=== PATIENT | female | born 1995 | race Caucasian/White ===

== ENCOUNTER 2023-03-30 11:58 | Emergency (ER) | payer OTHER ==
[2023-03-30 12:38] VITALS: O2SAT 100
--- NOTE | 2023-03-30 12:49 | ED Physician Documentation ---
History of Present Illness - Stated complaint Stated Complaint: - Chief complaint Chief Complaint: Abd Pain - History obtained from History obtained from: Patient, Family - History of Present Illness Timing: How many days ago (6) - Additonal information Additional information: 27-year-old female, 1 para 0, approximately 8 weeks visiting from [place] has had vaginal bleeding and spotting for the past 6 days. Her blood type is B+. mild pelvic cramping. nothing makes it better or worse. no vaginal discharge. Review of Systems Constitutional: denies: Fever, Chills Respiratory: denies: Cough GI: denies: Nausea, Vomiting, Diarrhea Skin: denies: Rash Musculoskeletal: denies: Neck pain, Back pain Neurologic: denies: Headache PD PAST MEDICAL HISTORY - Past Medical History Past Medical History: No Cardiovascular: None Respiratory: None Neuro: None Endocrine/Autoimmune: None GI: None MORNING CAREGIVER: None : None HEENT: None Psych: None Musculoskeletal: None Derm: None - Past Surgical History Past Surgical History: No - Present Medications Home Medications: Ambulatory Orders Medication Instructions Recorded Confirmed No Known Home Medications 03/30/23 03/30/23 - Allergies Allergies/Adverse Reactions: Allergies Allergy/AdvReac Type Severity Reaction Status Date / Time No Known Drug Allergies Allergy Verified 03/30/23 12:24 - Social History Does the pt smoke?: No Smoking Status: Never smoker Does the pt drink ETOH?: No Does the pt have substance abuse?: No - Immunizations Immunizations are current?: Yes - POLST Patient has POLST: No PD ED PE NORMAL - Vitals Vital signs reviewed: Yes - General General: Alert and oriented X 3, No acute distress - HEENT HEENT: Moist mucous membranes - Neck Neck: Supple, no meningeal sign - Cardiac Cardiac: RRR, Strong equal pulses - Respiratory Respiratory: No respiratory distress, Clear bilaterally - Abdomen Abdomen: Soft, Non tender, Non distended - Derm Derm: Warm and dry, No rash - Extremities Extremities: No edema, No calf tenderness / cord - Neuro Neuro: Alert and oriented X 3 - Psych Psych: Normal mood, Normal affect Results - Vitals Vitals: Vital Signs - 24 hr 03/30/23 03/30/23 03/30/23 12:18 13:56 15:00 Temperature 37.1 C 37.0 C Heart Rate 93 84 82 Respiratory 18 18 16 Rate Blood Pressure 141/67 H 119/74 120/72 O2 Saturation 100 100 100 Oxygen O2 Source Room air - Labs Labs: Laboratory Tests 03/30/23 03/30/23 03/30/23 12:30 12:58 12:58 WBC 6.4 RBC 4.54 Hgb 13.7 Hct 41.2 MCV 90.7 MCH 30.2 MCHC 33.3 RDW 12.6 Plt Count 312 MPV 9.1 Neut # (Auto) 4.2 Lymph # (Auto) 1.4 L [place] # (Auto) 0.6 Eos # (Auto) 0.1 Baso # (Auto) 0.0 Absolute Nucleated RBC 0.00 Nucleated RBC % 0.0 Sodium 138 Potassium 4.1 Chloride 104 Carbon Dioxide 29 Anion Gap 5.0 L BUN 12 Creatinine 0.6 Estimated GFR (MDRD) 121 Glucose 75 Calcium 9.6 Total Bilirubin 0.3 AST 27 ALT 58 Alkaline Phosphatase 58 Total Protein 7.5 Albumin 4.6 Globulin 2.9 Albumin/Globulin Ratio 1.6 Beta HCG, Quant 4537.6 Urine Color YELLOW Urine Clarity HAZY Urine pH 6.5 Ur Specific [place] 1.015 Urine Protein NEGATIVE Urine Glucose (UA) NEGATIVE Urine Ketones NEGATIVE Urine Occult Blood MODERATE H Urine Nitrite NEGATIVE Urine Bilirubin NEGATIVE Urine Urobilinogen 0.2 (NORMAL) Ur Leukocyte Esterase NEGATIVE Urine RBC 0-5 Urine WBC 0-3 Ur Squamous Epith Cells MOD Squamous H Amorphous Sediment Marked Urine Bacteria Few Ur Microscopic Review INDICATED Urine Culture Comments NOT INDICATED - Rads (name of study) OB ultrasound Relevant Findings:: Final report received, See rad report PD Medical Decision Making - ED course Complexity details: reviewed results, re-evaluated patient, considered differential, d/w patient, d/w family ED course: No significant lab abnormalities. Beta-hCG is approximately 4500. Ultrasound reveals a gestational sac and yolk sac, approximately 5 weeks 5 days. No other abnormalities. Patient currently asymptomatic. She is visiting from out of town, so will return here in approximately 3 days for repeat hCG. Ectopic precautions given at bedside, no evidence of ectopic currently. Patient counseled regarding signs and symptoms for which I believe and urgent re- evaluation would be necessary. Patient with good understanding of and agreement to plan and is comfortable going home at this time This document was made in part using voice recognition software. While efforts are made to proofread this document, sound alike and grammatical errors may occur. Departure - Departure Disposition: 01 Home, Self Care Clinical Impression: Vaginal bleeding affecting early Condition: Good Instructions: ED Miscarriage Poss Comments: Please return here in 2 to 3 days for repeat hCG level as you are visiting from out of town. Your hCG level today was about 4500. There is a gestational sac, evidence of a yolk sac and an estimated gestational age of 5 weeks 5 days on ultrasound today. Please return for worsening bleeding, pain or other new or worrisome symptoms. Forms: PCP List Discharge Date/Time: 03/30/23 15:34
[2023-03-30 13:06] LABS: BASOPHILS % (AUTO) 0.6 %; EOSINOPHILS # (AUTO) 0.1 10^3/uL (0.0-0.7); EOSINOPHILS % (AUTO) 1.1 %; HCT - HEMATOCRIT 41.2 % (37.0-47.0); HGB - HEMOGLOBIN 13.7 g/dL (12.0-16.0); LYMPHOCYTES # (AUTO) 1.4 10^3/uL (1.5-3.5); LYMPHOCYTES % (AUTO) 22.2 %; MEAN CORPUSCULAR HEMOGLOBIN 30.2 pg (27.0-31.0); MEAN CORPUSCULAR HGB CONC 33.3 g/dL (32.0-36.0); MEAN CORPUSCULAR VOLUME 90.7 fL (81.0-99.0); MEAN PLATELET VOLUME 9.1 fL (7.9-10.8); MONOCYTES # (AUTO) 0.6 10^3/uL (0.0-1.0); NEUTROPHILS # (AUTO) 4.2 10^3/uL (1.5-6.6); NEUTROPHILS % (AUTO) 65.8 %; PLT - PLATELET COUNT 312 10^3/uL (130-450); RED BLOOD COUNT 4.54 10^6/uL (4.20-5.40); RED CELL DISTRIBUTION WIDTH 12.6 % (12.0-15.0); WHITE BLOOD COUNT 6.4 x10^3/uL (4.8-10.8)
[2023-03-30 13:20] LABS: ALBUMIN 4.6 g/dL (3.2-5.5); ALBUMIN/GLOBULIN RATIO 1.6 (1.0-2.2); BILIRUBIN,TOTAL 0.3 mg/dL (0.2-1.0); CALCIUM 9.6 mg/dL (8.5-10.3); CREATININE 0.6 mg/dL (0.6-1.3); POTASSIUM 4.1 mmol/L (3.5-4.5); TOTAL PROTEIN 7.5 g/dL (6.4-8.9)
[2023-03-30 13:24] LABS: BILIRUBIN,URINE NEGATIVE (NEGATIVE); GLUCOSE, URINE (UA) NEGATIVE (NEGATIVE); KETONES,URINE (UA) NEGATIVE (NEGATIVE); LEUKOCYTE ESTERASE, URINE NEGATIVE (NEGATIVE); NITRITE,URINE NEGATIVE (NEGATIVE); OCCULT BLOOD,URINE MODERATE (NEGATIVE); PH,URINE 6.5 PH (5.0-7.5); PROTEIN,URINE NEGATIVE (NEGATIVE); UROBILINOGEN,URINE 0.2 (NORMAL) E.U./dL (NORMAL)
[2023-03-30 13:28] LABS: CLARITY,URINE HAZY (CLEAR)
[2023-03-30 13:56] LABS: AMORPHOUS SEDIMENT,UR Marked /LPF; BACTERIA,URINE Few /HPF (None Seen); RBC,URINE 0-5 /HPF (0-5); SQUAMOUS EPITHELIAL CELL,UR MOD Squamous (<= Few); WBC,URINE 0-3 /HPF (0-5)
[2023-03-30 15:34] VITALS: BP 120/72
--- NOTE | 2023-03-30 15:54 | Ultrasound Report ---
PROCEDURE: OB First Trimester w/TV INDICATIONS: 8 weeks preg, vaginal bleeding OUTSIDE/PRIOR DATING DATA: Last menstrual period (LMP): 01/25/2023. LMP-based estimated date of delivery (ANA): 11/25/2023. First dating scan (date and location): Today. Estimated date of delivery (ANA) from first dating scan: NA. TECHNIQUE: Real-time scanning was performed of the fetus and maternal pelvic organs, with image documentation. Endovaginal scanning was also performed to better visualize the fetus and maternal ovaries. COMPARISON: None. FINDINGS: Intrauterine gestational sac present. Gestational sac: None gestational sac diameter is 0.6 cm, consistent with 5 weeks and 5 days. No emb aníbal is seen. Yolk sac is present. Other: No perigestational fluid collection. Measurement variability in dating: +/- 4 weeks by LMP, +/- 7 days by mean sac diameter (use before 6 weeks gestation if crown-rump length not able to be measured), +/- 5 days by crown-rump length (6-12 weeks gestation). Maternal organs: Ovaries appear within normal limits. IMPRESSION: Possible early intrauterine with mean gestational sac consistent with 5 weeks and 5 days. N o pole is identified. Yolk sac is present. Recommend continued trending of beta hCG and follow- up ultrasound as clinically indicated. Preliminary report given to Dr. Keating by the computer engineering technologist. Reviewed by: Caden Lizarraga MD on 03/30/2023 3:53 PM PDT Approved by: Caden Lizarraga MD on 03/30/2023 3:53 PM PDT Station ID: [id number]
== END 2023-03-30 15:34 | disposition home or self-care (01) ==
LOC: ED 11:58
DX: O20.9 Hemorrhage in early pregnancy, unspecified (principal); Z3A.01 Less than 8 weeks gestation of pregnancy
CPT/HCPCS: 36415; 80053; 81001; 81003; 84702; 85025; 87086; 99283

== ENCOUNTER 2023-04-01 11:04 | Emergency (ER) | payer OTHER ==
[2023-04-01 11:27] LABS: BASOPHILS # (AUTO) 0.1 10^3/uL (0.0-0.1); BASOPHILS % (AUTO) 0.9 %; EOSINOPHILS # (AUTO) 0.1 10^3/uL (0.0-0.7); EOSINOPHILS % (AUTO) 1.2 %; HCT - HEMATOCRIT 40.8 % (37.0-47.0); HGB - HEMOGLOBIN 13.4 g/dL (12.0-16.0); LYMPHOCYTES # (AUTO) 1.1 10^3/uL (1.5-3.5); LYMPHOCYTES % (AUTO) 19.2 %; MEAN CORPUSCULAR HEMOGLOBIN 29.8 pg (27.0-31.0); MEAN CORPUSCULAR HGB CONC 32.8 g/dL (32.0-36.0); MEAN CORPUSCULAR VOLUME 90.9 fL (81.0-99.0); MEAN PLATELET VOLUME 8.8 fL (7.9-10.8); MONOCYTES # (AUTO) 0.5 10^3/uL (0.0-1.0); NEUTROPHILS # (AUTO) 4.1 10^3/uL (1.5-6.6); NEUTROPHILS % (AUTO) 70.2 %; PLT - PLATELET COUNT 301 10^3/uL (130-450); RED BLOOD COUNT 4.49 10^6/uL (4.20-5.40); RED CELL DISTRIBUTION WIDTH 12.4 % (12.0-15.0); WHITE BLOOD COUNT 5.9 x10^3/uL (4.8-10.8)
--- NOTE | 2023-04-01 13:31 | ED Physician Documentation ---
History of Present Illness - Stated complaint Stated Complaint: REPEAT LABS - Chief complaint Chief Complaint: General - Additonal information Additional information: 27-year-old female [place] presents em ergency department for recheck of her beta hCG levels. She was seen here on the fourth. At that time had a quant of 4700 and had been having vaginal bleeding and spotting for about 6 days. Ultrasound showed a gestational sac but no pole. She was advised to return to the ER in 48 to 72 hours for recheck. She states that she continues to have some vaginal bleeding and cramping. No fevers no focal pain. Review of Systems Constitutional: denies: Fever : reports: Vaginal bleeding Skin: reports: Reviewed and negative PD PAST MEDICAL HISTORY - Past Medical History Cardiovascular: None Respiratory: None Neuro: None Endocrine/Autoimmune: None GI: None PRECISION INSTRUMENT MAKER AND REPAIRER: None : None HEENT: None Psych: None Musculoskeletal: None Derm: None - Past Surgical History Past Surgical History: No - Present Medications Home Medications: Ambulatory Orders Medication Instructions Recorded Confirmed No Known Home Medications 03/30/23 04/01/23 - Allergies Allergies/Adverse Reactions: Allergies Allergy/AdvReac Type Severity Reaction Status Date / Time No Known Drug Allergies Allergy Verified 04/01/23 11:47 - Social History Does the pt smoke?: No Smoking Status: Never smoker Does the pt drink ETOH?: No Does the pt have substance abuse?: No - Immunizations Immunizations are current?: Yes - POLST Patient has POLST: No PD ED PE NORMAL - General General: Alert and oriented X 3, No acute distress - Cardiac Cardiac: RRR, No murmur - Respiratory Respiratory: Clear bilaterally - Abdomen Abdomen: Normal bowel sounds, Soft, Non tender, Non distended - Derm Derm: Normal color, Warm and dry, No rash - Extremities Extremities: No deformity - Neuro Neuro: Alert and oriented X 3 Eye Opening: Spontaneous Motor: Obeys Commands Verbal: Oriented GCS Score: 15 Results - Vitals Vitals: Vital Signs - 24 hr 04/01/23 11:44 Temperature 36.8 C Heart Rate 81 Respiratory 15 Rate Blood Pressure 125/74 O2 Saturation 99 Oxygen O2 Source Room air - Labs Labs: Laboratory Tests 04/01/23 04/01/23 11:24 11:24 WBC 5.9 RBC 4.49 Hgb 13.4 Hct 40.8 MCV 90.9 MCH 29.8 MCHC 32.8 RDW 12.4 Plt Count 301 MPV 8.8 Neut # (Auto) 4.1 Lymph # (Auto) 1.1 L [place] # (Auto) 0.5 Eos # (Auto) 0.1 Baso # (Auto) 0.1 Absolute Nucleated RBC 0.00 Nucleated RBC % 0.0 Beta HCG, Quant 3754.6 PD Medical Decision Making - ED course Complexity details: reviewed results, re-evaluated patient ED course: 27-year-old G1, P0 female presents emergency department for reevaluation of her . Seen 2 days ago with 1 week of vaginal spotting. At that time ultrasound showed a gestational sac but no pole. Her quant was at that time of 4537. Since discharge she has had persistent spotting and some mild increase in bleeding. No fainting or syncope. I am labs today are repeated she has a stable hemoglobin at 13.4. Her quant has unfortunately declined to 3754. I discussed with the patient and her at the bedside that this likely represents an inevitable miscarriage. We discussed the routine management and expectations which would include vaginal bleeding and spotting for about a week. Return precautions for foul-smelling discharge, heavy vaginal bleeding fainting chest pain or shortness of air. She is scheduled to return to [place] in about 1 week's time Departure - Departure Disposition: 01 Home, Self Care Clinical Impression: , inevitable Condition: Stable Record reviewed to determine appropriate education?: Yes Instructions: Miscarriage Dc Comments: Ariana I am so sorry to inform you today that your hormone levels are dropping. Typically in the first trimester of this is an indication that the is failed. With most miscarriages you can expect to have. Like vaginal bleeding or something perhaps a little heavier for 7 to 10 days. If at any point you are saturating a pad or tampon every hour for 4 more hours, develop fevers, have foul-smelling vaginal bleeding uncontrolled vomiting, chest pain or shortness of air then please return immediately to the ER for a repeat evaluation.
[2023-04-01 13:51] VITALS: BP 121/64; O2SAT 98
== END 2023-04-01 13:46 | disposition home or self-care (01) ==
LOC: ED 11:04
DX: O03.4 Incomplete spontaneous abortion without complication (principal)
CPT/HCPCS: 36415; 84702; 85025; 99283